=== PATIENT | female | born 1990 | race Caucasian/White ===

== ENCOUNTER 2024-02-11 18:54 | Emergency (ER) | payer BC, OTHER ==
[2024-02-11 19:12] VITALS: BP 119/78; PULSE 93; RESP 18; TEMP 99; BMI 27.3
[2024-02-11 19:35] LABS: BASO % 0.8 % (0-2.0); EOS % 2.9 % (0-4.5); HEMATOCRIT 37.5 % (32.4-45.2); HEMOGLOBIN 12.3 GM/dL (10.7-15.3); LYMPH % 28.8 % (8-40); MCH 28.6 pg (25.7-33.7); MCHC 32.7 g/dl (32.0-36.0); MEAN CELL VOLUME 87.5 fl (80-96); MEAN PLT VOLUME 8.1 fl (7.5-11.1); MONO % 10.3 % (3.8-10.2); NEUT % 57.2 % (42.8-82.8); PLATELET COUNT 300 10^3/uL (134-434); RBC 4.28 M/mm3 (3.60-5.2); RDW 13.8 % (11.6-15.6); WHITE BLOOD COUNT 5.3 K/mm3 (4.0-10.0)
[2024-02-11 19:43] LABS: INR 1.06 (0.83-1.09); PROTHROMBIN TIME (PATIENT) 12.3 SEC (9.7-13.0)
[2024-02-11 19:46] LABS: POTASSIUM 3.8 mmol/L (3.5-5.1)
[2024-02-11 19:49] LABS: CALCIUM 9.8 mg/dL (8.5-10.1)
[2024-02-11 19:50] LABS: BLOOD UREA NITROGEN 9.6 mg/dL (7-18)
[2024-02-11 19:52] LABS: CREATININE 0.7 mg/dL (0.55-1.3)
[2024-02-11] MEDS: SODIUM CHLORIDE 0.9% 500 ML INFUS.BAG IV ONE (19:52)
[2024-02-11 19:54] LABS: BILIRUBIN,TOTAL 0.4 mg/dL (0.2-1); TOT PROT 7.3 g/dl (6.4-8.2)
== END 2024-02-11 23:05 | disposition home or self-care (01) ==
LOC: JER 18:54
DX: R10.33 Periumbilical pain (principal); K52.9 Noninfective gastroenteritis and colitis, unspecified
CPT/HCPCS: 36415; 74177-TC; 80053; 83690; 84703; 85025; 85610; 86850; 86900; 86901; 99285-25; Q9967

== ENCOUNTER 2025-05-02 18:47 | Emergency (ER) | payer BC, OTHER ==
[2025-05-02 19:04] VITALS: BP 126/71; PULSE 76; RESP 18; TEMP 97.8; BMI 25.4
[2025-05-02 20:17] LABS: ABSOLUTE IMMATURE GRANULOCYTES 0.06 x10^3/uL (0.0-0.031); BASOPHILS # 0.08 x10^3/uL (0.01-0.08); EOSINOPHIL % 3.5 % (0.7-5.8); EOSINOPHILS # 0.34 x10^3/uL (0.04-0.36); MCHC 32.5 g/dl (32.2-35.5); MEAN CELL VOLUME 85.4 fl (79.4-94.8); MEAN PLT VOLUME 9.2 fl (9.4-12.3); MONOCYTE # 1.02 x10^3/uL (0.24-0.86); MONOCYTE % 10.4 % (4.7-12.5); RDW 15.2 % (12.1-16.8)
[2025-05-02 20:33] LABS: INR 1.06 (0.83-1.09); PROTHROMBIN TIME (PATIENT) 11.7 SEC (9.7-13.0)
[2025-05-02] MEDS: IOHEXOL (OMNIPAQUE PO) 12 MG/ML - 500 ML BOTTLE PO ONE (20:35)
[2025-05-02 20:36] LABS: ACTIVATED PTT 26.6 SECONDS (25.2-36.5)
[2025-05-02 20:57] LABS: CO2 29.0 mmol/L (21-32); GLUCOSE,RANDOM 93.0 mg/dL (74-106)
[2025-05-02 21:00] LABS: CREATININE 0.6 mg/dL (0.55-1.3); SGOT/AST 21.0 U/L (15-37); SGPT/ALT 17.0 U/L (13-61)
[2025-05-02 21:02] LABS: TOT PROT 6.4 g/dl (6.4-8.2)
[2025-05-02 21:03] LABS: ALK PHOS 97.0 U/L (45-117)
[2025-05-02] MEDS: IOHEXOL (OMNIPAQUE IV) 350 MG/ML - 100 ML BOTTLE PO ONE (21:59)
[2025-05-02 22:47] LABS: EPI CELLS 4 /uL (0-25.1); HCG,QUALITATIVE URINE Negative; HYALINE CASTS 0 /uL (0-3.1); URINE APPEARANCE CLEAR; URINE BACTERIA 65 /uL (0-1359); URINE BILIRUBIN NEGATIVE (NEGATIVE); URINE COLOR YELLOW; URINE GLUCOSE (UA) NEGATIVE (NEGATIVE); URINE KETONE NEGATIVE (NEGATIVE); URINE LEUK ESTERASE TRACE (NEGATIVE); URINE NITRITE NEGATIVE (NEGATIVE); URINE PROTEIN NEGATIVE (NEGATIVE); URINE RBC 7 /uL (0-23.9); URINE UROBILINOGEN 0.2 mg/dL (0.2-1.0); URINE WBC 21 /uL (0-25.8)
== END 2025-05-03 00:01 | disposition home or self-care (01) ==
LOC: JER 18:47
DX: K52.29 Other allergic and dietetic gastroenteritis and colitis (principal); R10.84 Generalized abdominal pain
CPT/HCPCS: 36415; 74177-TC; 80053; 81003; 84703; 85025; 85610; 85730; 86850; 86900; 86901; 87086; 93005; 93010; 99285-25; Q9967

== ENCOUNTER 2025-06-08 12:55 | Inpatient (IN) | payer BC ==
[2025-06-08] MEDS ORDERED: ACETAMINOPHEN INJECTION 100 ML ONE (13:35)
[2025-06-08] MEDS ORDERED: PANTOPRAZOLE SODIUM 40 MG VIAL ONE (13:36)
[2025-06-08] MEDS ORDERED: FAMOTIDINE 20 MG/50 ML IVPB 20 MG/50 ML MG IVPB ONE (13:36)
[2025-06-08] MEDS ORDERED: ONDANSETRON 4 MG/2 ML VIAL ONE (13:36)
[2025-06-08 13:41] LABS: MCHC 33.2 g/dl (32.2-35.5); MEAN CELL VOLUME 81.2 fl (79.4-94.8); MEAN PLT VOLUME 8.3 fl (9.4-12.3); RDW 14.4 % (12.1-16.8)
[2025-06-08] MEDS: ACETAMINOPHEN 1000 MG/100 ML BAG IVPB ONE (13:42)
[2025-06-08] MEDS: ONDANSETRON 4 MG/2 ML VIAL IVPUSH ONE (13:42)
[2025-06-08] MEDS: PANTOPRAZOLE SODIUM 40 MG VIAL IVPUSH ONE (13:43)
[2025-06-08] MEDS: FAMOTIDINE 20 MG/50 ML IVPB 20 MG/50 ML MG IVPB ONE (13:43)
[2025-06-08] MEDS: DEXTROSE 5%-LACTATED RINGERS 1,000 ML IV SCH (13:53)
[2025-06-08 14:06] LABS: CO2 28 mmol/L (21-32); GLUCOSE,RANDOM 129 mg/dL (74-106)
[2025-06-08 14:09] LABS: CREATININE 0.7 mg/dL (0.55-1.3); SGOT/AST 7 U/L (15-37); SGPT/ALT 8 U/L (13-61)
[2025-06-08 14:10] LABS: TOT PROT 5.9 g/dl (6.4-8.2)
[2025-06-08 14:12] LABS: ALK PHOS 88 U/L (45-117)
[2025-06-08 14:33] LABS: INR 1.35 (0.83-1.09); PROTHROMBIN TIME (PATIENT) 14.7 SEC (9.7-13.0)
[2025-06-08 14:34] LABS: ERYTHROCYTE SEDIMENTATION RATE 63 mm/hr (0-20)
[2025-06-08] MEDS ORDERED: methylPREDNISolone NA SUCC 40 MG/1 ML VIAL ONE (18:21)
[2025-06-08] MEDS: methylPREDNISolone NA SUCC 40 MG/1 ML VIAL IVPUSH ONE (18:33)
[2025-06-08] MEDS ORDERED: LACTATED RINGERS SOLUTION 1,000 ML/1,000 ML INFUS.BAG IV SCH (19:30)
[2025-06-08] MEDS: morphine CARPU-JECT 2 MG/1 ML DISP.SYRIN IVPUSH PRN (20:29)
[2025-06-08] MEDS: POTASSIUM CHLORIDE TABS 20 MEQ TABLET.ER (FP) PO ONE (20:57)
[2025-06-08 21:03] VITALS: BMI 23.5
[2025-06-08] MEDS: MESALAMINE 4 GM/60 ML ENEMA RC SCH (22:48)
[2025-06-09] MEDS: ACETAMINOPHEN 1000 MG/100 ML BAG IVPB PRN (00:12)
[2025-06-09 01:15] LABS: MCHC 33.2 g/dl (32.2-35.5); MEAN CELL VOLUME 81.7 fl (79.4-94.8); MEAN PLT VOLUME 8.6 fl (9.4-12.3); RDW 14.3 % (12.1-16.8)
[2025-06-09 09:29] LABS: MCHC 33.5 g/dl (32.2-35.5); MEAN CELL VOLUME 79.8 fl (79.4-94.8); MEAN PLT VOLUME 8.6 fl (9.4-12.3); RDW 14.3 % (12.1-16.8)
[2025-06-09 09:59] LABS: CO2 29.0 mmol/L (21-32)
[2025-06-09 10:00] LABS: GLUCOSE,RANDOM 96.0 mg/dL (74-106)
[2025-06-09 10:02] LABS: SGPT/ALT 8.0 U/L (13-61)
[2025-06-09 10:03] LABS: CREATININE 0.4 mg/dL (0.55-1.3); SGOT/AST 6.0 U/L (15-37)
[2025-06-09 10:04] LABS: TOT PROT 5.4 g/dl (6.4-8.2)
[2025-06-09 10:05] LABS: ALK PHOS 81.0 U/L (45-117)
[2025-06-09] MEDS: PANTOPRAZOLE SODIUM 40 MG VIAL IVPUSH SCH (10:17)
[2025-06-09] MEDS: methylPREDNISolone NA SUCC 40 MG/1 ML VIAL IVPUSH SCH (10:17)
[2025-06-09] MEDS: SODIUM CHLORIDE 250 ML IV STA (12:04)
[2025-06-09] MEDS: LORATADINE 10 MG TABLET PO SCH (12:06)
[2025-06-09] MEDS: HYDROCORTISONE 100 MG/60 ML RECTAL ENEMA RC SCH (21:06)
[2025-06-10] MEDS: ACETAMINOPHEN 1000 MG/100 ML BAG IVPB ONE (01:19)
[2025-06-10 08:14] LABS: MCHC 32.6 g/dl (32.2-35.5); MEAN CELL VOLUME 81.4 fl (79.4-94.8); MEAN PLT VOLUME 8.6 fl (9.4-12.3); RDW 14.6 % (12.1-16.8)
[2025-06-10] MEDS: ACETAMINOPHEN 1000 MG/100 ML BAG IVPB PRN (08:55)
[2025-06-10 09:03] LABS: CO2 30 mmol/L (21-32); GLUCOSE,RANDOM 96 mg/dL (74-106)
[2025-06-10 09:06] LABS: CREATININE 0.5 mg/dL (0.55-1.3); SGOT/AST 6 U/L (15-37); SGPT/ALT 9 U/L (13-61)
[2025-06-10 09:08] LABS: TOT PROT 5.5 g/dl (6.4-8.2)
[2025-06-10 09:09] LABS: ALK PHOS 85 U/L (45-117)
[2025-06-10] MEDS: DEXTROSE 5%-LACTATED RINGERS 1,000 ML IV SCH (09:31)
[2025-06-11 01:47] LABS: HEPATITIS B SURF AG NON-MATERN NON-REACTIVE (NONREACTIVE)
[2025-06-11 03:18] LABS: HCV DIAGNOSTIC IN-HOUSE W/RFLX NON-REACTIVE (NONREACTIVE)
[2025-06-11 04:35] LABS: HIV INTERPRETATION NEGATIVE (NEGATIVE)
[2025-06-11 08:14] LABS: MCHC 31.5 g/dl (32.2-35.5); MEAN CELL VOLUME 82.7 fl (79.4-94.8); MEAN PLT VOLUME 8.3 fl (9.4-12.3); RDW 14.7 % (12.1-16.8)
[2025-06-11 08:42] LABS: CO2 29.0 mmol/L (21-32); GLUCOSE,RANDOM 88.0 mg/dL (74-106)
[2025-06-11 08:45] LABS: CREATININE 0.5 mg/dL (0.55-1.3); SGOT/AST 6.0 U/L (15-37); SGPT/ALT 7.0 U/L (13-61)
[2025-06-11 08:46] LABS: TOT PROT 5.2 g/dl (6.4-8.2)
[2025-06-11 08:48] LABS: ALK PHOS 88.0 U/L (45-117)
[2025-06-11 13:44] VITALS: RESP 18
[2025-06-12 07:22] VITALS: TEMP 97.7
[2025-06-12 09:19] LABS: MCHC 31.4 g/dl (32.2-35.5); MEAN CELL VOLUME 82.2 fl (79.4-94.8); MEAN PLT VOLUME 8.6 fl (9.4-12.3); RDW 14.6 % (12.1-16.8)
[2025-06-12 10:48] LABS: CO2 28.0 mmol/L (21-32); GLUCOSE,RANDOM 80.0 mg/dL (74-106)
[2025-06-12 10:52] LABS: CREATININE 0.49 mg/dL (0.55-1.3); SGOT/AST 5.0 U/L (15-37); SGPT/ALT 7.0 U/L (13-61)
[2025-06-12 10:54] LABS: ALK PHOS 92.0 U/L (45-117); TOT PROT 5.4 g/dl (6.4-8.2)
[2025-06-12 10:59] VITALS: BP 137/82; PULSE 101
[2025-06-12] MEDS: HYDROCORTISONE 100 MG/60 ML RECTAL ENEMA RC SCH (12:20)
[2025-06-12] MEDS: HYDROCORTISONE 100 MG/60 ML RECTAL ENEMA RC ONE (13:36)
[2025-06-12 21:01] LABS: IRON SERUM 18 ug/dL (50-175)
== END 2025-06-12 14:57 | disposition home or self-care (01) | DRG 386 ==
LOC: JER 12:55 → JERBED 17:48 → J5S 19:35
PROVIDERS: ADMIT Internal Medicine; ATTEND Internal Medicine
PROC: 30233N1 Transfusion of Nonautologous Red Blood Cells into Peripheral Vein, Percutaneous Approach (ICD-10-PCS; principal; 2025-06-08)
DX: K51.211 Ulcerative (chronic) proctitis with rectal bleeding (principal); D62 Acute posthemorrhagic anemia; D50.9 Iron deficiency anemia, unspecified
CPT/HCPCS: 36415; 36430; 73110-TC-RT-FY; 73130-TC-RT-FY; 74177-TC; 80053; 82728; 83540; 83550; 83605; 83735; 84100; 84466; 84484; 84703; 85025; 85027; 85610; 85651; 86140; 86480; 86704; 86708; 86787; 86803; 86850; 86900; 86901; 86922; 87045; 87046; 87209; 87324; 87340; 87389; 87449; 87517; 93005; 93010; 99285-25; P9058; Q9967